=== PATIENT | male | born 1995 | race Caucasian/White ===

== ENCOUNTER 2021-09-06 13:48 | Emergency (ER) | payer OTHER ==
[~2021-09-06] VITALS: Ht 172.7 cm; Wt 74.1 kg
[~2021-09-06 13:48] MED LIST: ADDE15CA3 PO; ADDE20CA3 PO; AMPH1CAP16 PO; IBUP-1022 PO; PENI500T PO; TYLE325T5 PO; ZOLO25TA PO
[2021-09-06 15:49] LABS: BASO # 0.1 10^3/uL (0.0-0.2); BASO % 1.1 % (0.0-1.0); EOS # 0.2 10^3/uL (0.0-0.5); EOS % 3.2 % (0.0-3.0); HEMOGLOBIN 15.5 g/dl (13.5-17.5); LYMPH # 2.1 10^3/uL (1.5-5.0); LYMPH % 32.3 % (24.0-44.0); MEAN CORPUSCULAR HEMOGLOBIN 29.5 pg (27.0-33.0); MEAN CORPUSCULAR HGB CONC 34.4 g/dl (32.0-36.5); MEAN CORPUSCULAR VOLUME 85.7 fl (80.0-96.0); MONO # 0.4 10^3/uL (0.0-0.8); MONO % 6.8 % (2.0-8.0); NEUTROPHILS # 3.7 10^3/uL (1.5-8.5); NEUTROPHILS % 56.3 % (36.0-66.0); PLATELET COUNT, AUTOMATED 252 10^3/uL (150-450); RED BLOOD COUNT 5.25 10^6/uL (4.30-6.10); WHITE BLOOD COUNT 6.5 10^3/uL (4.0-10.0)
[2021-09-06 16:10] LABS: ALBUMIN 4.4 GM/DL (3.2-5.2); BILIRUBIN,DIRECT 0.3 MG/DL (0.0-0.2); BILIRUBIN,TOTAL 1.4 MG/DL (0.2-1.0); TOTAL PROTEIN 7.7 GM/DL (6.4-8.2)
[2021-09-06 16:45] LABS: MAGNESIUM LEVEL 2.2 MG/DL (1.8-2.4)
[2021-09-06] MEDS ORDERED: MIRA3350 PO (17:00)
[2021-09-06 17:49] VITALS: BP 127/69
== END 2021-09-06 17:51 | disposition home or self-care (01) ==
LOC: M ED 13:48
DX: K59.00 Constipation, unspecified (principal); E80.6 Other disorders of bilirubin metabolism; F90.9 Attention-deficit hyperactivity disorder, unspecified type; G47.30 Sleep apnea, unspecified; M54.9 Dorsalgia, unspecified; F17.290 Nicotine dependence, other tobacco product, uncomplicated; F12.10 Cannabis abuse, uncomplicated; Z79.899 Other long term (current) drug therapy; Z88.8 Allergy status to other drugs, medicaments and biological substances

== ENCOUNTER 2021-12-14 17:33 | Emergency (ER) | payer OTHER, SELFPAY ==
[~2021-12-14] VITALS: Ht 172.7 cm; Wt 72.7 kg
[~2021-12-14 17:33] MED LIST changes: +MIRA3350 PO
[2021-12-14 18:31] LABS: RSV AMPLIFICATION NEGATIVE (NEGATIVE)
[2021-12-14 20:42] VITALS: BP 139/86
[2021-12-14] MEDS ORDERED: ONDANSETRON 4MG ORAL DISINTEGRATING TAB PO ONE (21:05)
[2021-12-14] MEDS ORDERED: IBUPROFEN 800 MG TAB PO ONE (21:25)
[2021-12-14] MEDS ORDERED: ACETAMINOPHEN 500 MG TAB PO ONE (21:25)
[2021-12-14] MEDS ORDERED: ONDA4TAB6 PO (22:10)
[2021-12-14] MEDS ORDERED: IBUP80TA PO (22:10)
== END 2021-12-14 22:25 | disposition home or self-care (01) ==
LOC: M ED 17:33
DX: U07.1 COVID-19 (principal); R51.9 Headache, unspecified; G47.33 Obstructive sleep apnea (adult) (pediatric); F90.9 Attention-deficit hyperactivity disorder, unspecified type; Z79.899 Other long term (current) drug therapy; Z88.8 Allergy status to other drugs, medicaments and biological substances

== ENCOUNTER → 2025-06-19 | Outpatient (REF) | payer SELFPAY ==
[~2025-06-19] MED LIST changes: -IBUP-1022 PO; +IBUP600T42 PO; +IBUP80TA PO; +ONDA-282 PO
[2025-06-19 15:02] LABS: BASO # 0.1 10^3/uL (0.0-0.2); BASO % 1.9 % (0.0-1.0); EOS # 0.1 10^3/uL (0.0-0.5); EOS % 3.1 % (0.0-3.0); LYMPH # 1.7 10^3/uL (1.5-5.0); LYMPH % 39.9 % (24.0-44.0); MONO # 0.4 10^3/uL (0.0-0.8); MONO % 9.4 % (2.0-8.0); NEUTROPHILS # 1.9 10^3/uL (1.5-8.5); NEUTROPHILS % 45.5 % (36.0-66.0); PLATELET COUNT, AUTOMATED 263 10^3/uL (150-450)
[2025-06-19 15:08] LABS: ALT/SGPT 25 U/L (7.0-40); AST/SGOT 17 U/L (<34); CALCIUM LEVEL 9.4 MG/DL (8.5-10.1); CARBON DIOXIDE LEVEL 28 MMOL/L (20-31); CHLORIDE LEVEL 105 MMOL/L (98-107); CHOLESTEROL LEVEL 144 MG/DL (<200); CHOLESTEROL RISK RATIO 3.50 (<5); CREATININE FOR GFR 0.99 MG/DL (0.70-1.30); GLOMERULAR FILTRATION RATE > 90.0 (>60); LDL CHOLESTEROL 92.5 MG/DL (<100); NON-HDL-C 102.9 MG/DL; POTASSIUM SERUM 4.0 MMOL/L (3.5-5.1); SODIUM LEVEL 144 MMOL/L (136-145); TRIGLYCERIDES LEVEL 52 MG/DL (<150)
[2025-06-19 15:56] LABS: ESTIMATED AVERAGE GLUCOSE 97.0 MG/DL (60-110)
== END ==
LOC: M LAB REF 14:37
PROVIDERS: ATTEND Family Medicine Addiction Medicine
DX: E66.9 Obesity, unspecified (principal); Z68.27 Body mass index [BMI] 27.0-27.9, adult